=== PATIENT | female | born 1995 | race Caucasian/White ===

== ENCOUNTER 2020-10-27 08:57 | Emergency (ER) | payer OTHER ==
[~2020-10-27] VITALS: Ht 180.3 cm; Wt 127.3 kg
[2020-10-27 09:07] VITALS: BP 128/80
[2020-10-27] MEDS ORDERED: oxyCODONE/APAP 5-325mg tablet PO ONE (10:35)
== END 2020-10-27 10:51 | disposition home or self-care (01) ==
LOC: ER 08:57
DX: S42.002A Fracture of unspecified part of left clavicle, initial encounter for closed fracture (principal); M25.512 Pain in left shoulder; M54.2 Cervicalgia; V87.7XXA Person injured in collision between other specified motor vehicles (traffic), initial encounter; Y93.9 Activity, unspecified; Y92.89 Other specified places as the place of occurrence of the external cause; Y99.8 Other external cause status
CPT/HCPCS: 71045; 73000; 73030; 93005; 99284